=== PATIENT | female | born 1930 | race Caucasian/White ===

== ENCOUNTER 2019-05-21 01:20 | Inpatient (IN) | payer MEDICARE, OTHER ==
[2019-05-21 02:16] LABS: #Basophils 0.1 thou/uL (0.0-0.2); #Eosinphils 0.2 thou/uL (0.0-0.7); #Lymphocytes 2.7 thou/uL (1.20-3.40); #Monocytes 1.4 thou/uL (0.11-0.59); #Neutrophils 9.6 thou/uL (1.40-6.50); %Basophils 0.7 % (0.0-1.0); %Eosinophils 1.6 % (0.0-10.0); %Lymphocytes 19.3 % (21.0-51.0); %Monocytes 9.7 % (0.0-10.0); %Neutrophils 68.6 % (42.0-75.0); Hemoglobin 15.3 g/dL (12.0-16.0); Mean Corpuscular HGB CONC 34.5 g/dL (32.0-36.0); Mean Corpuscular Hemoglobin 35.2 pg (27.0-31.0); Mean Platelet Volume 6.9 fL (7.4-10.4); Platelet Count 280 thou/uL (130-400); RBC Distribution Width 12.5 % (11.5-14.5); Red Blood Cell (RBC) Count 4.34 mill/uL (4.20-5.40)
[2019-05-21 02:37] LABS: ALT (SGPT) 12 U/L (8-55); AST (SGOT) 22 U/L (5-34); Albumin 3.9 g/dL (3.4-4.8); Alkaline Phosphatase 73 U/L (40-110); Anion Gap 9 mmol/L (10-20); BUN (Urea Nitrogen) 13 mg/dL (9.8-20.1); Bilirubin, Total 0.5 mg/dL (0.2-1.2); Calc. Creatinine Clearance 0 mL/min (70-130); Calcium 9.7 mg/dL (7.8-10.44); Carbon Dioxide 30 mmol/L (23-31); Chloride 99 mmol/L (98-107); Estimated GFR-MDRD 84; Globulin 3.4 g/dL (2.4-3.5); Glucose 95 mg/dL (83-110); Potassium 3.6 mmol/L (3.5-5.1); Protein, Total 7.3 g/dL (6.0-8.3); Sodium 134 mmol/L (136-145)
[2019-05-21] MEDS ORDERED: Ondansetron PF 4 MG/2 ML Vial IVP PRN ×2 (02:37→16:44)
[2019-05-21] MEDS ORDERED: Dextrose 50% Abboject 50 ML SYRINGE SLOW IVP PRN (02:37)
[2019-05-21] MEDS ORDERED: Dextrose 5% in Water 1,000 ML IV PRN (02:37)
[2019-05-21] MEDS ORDERED: hydrALAZINE 20 MG/ML VIAL SLOW IVP PRN (02:37)
[2019-05-21] MEDS ORDERED: Sodium Chloride 0.9% 1,000 ML IV SCH (02:45)
[2019-05-21 03:06] LABS: Magnesium 1.7 mg/dL (1.6-2.6); Phosphorus 3.3 mg/dL (2.3-4.7)
[2019-05-21] MEDS: Morphine 2 MG/ML SYRINGE SLOW IVP PRN ×2 (03:42→06:56)
[2019-05-21 03:46] VITALS: BMI 21.9
[2019-05-21] MEDS: Cyclobenzaprine 10 MG TAB PO PRN ×2 (04:46→20:36)
[2019-05-21] MEDS: traMADol HCl 50 MG TAB PO PRN ×2 (04:47→20:36)
[2019-05-21] MEDS: Acetaminophen 500 MG TAB PO SCH ×3 (04:47→17:49)
--- NOTE | 2019-05-21 05:10 | HP ---
TRAUMA SURGEON: Dr. Yoder. CONSULTING PHYSICIAN: Dr. Simmons. HISTORY OF PRESENT ILLNESS: The patient is an 88-year-old female, who presented to the emergency department via EMS after she had a mechanical fall today at home. She denies loss of consciousness or an anticoagulation use. She reports sitting on the seat of her walker and leaning forward to get a meatloaf out of the drawer of her freezer. Subsequently, the drawer fell out and this caused the patient to fall forward and out of her seat, landing on her right hip. Upon evaluation in the emergency department, it was found that she had a right intertrochanteric femur fracture and Dr. Simmons was contacted for evaluation and management. Trauma to evaluate the patient and admit to the hospital. REVIEW OF SYSTEMS: All additional 10-point review of systems is negative except as indicated above. PAST MEDICAL HISTORY: Esophageal cancer, osteoporosis, osteoarthritis, unspecified lung disease that patient reports is not COPD, GERD, hypertension, and hypothyroidism. PAST SURGICAL HISTORY: Esophageal surgery. SOCIAL HISTORY: The patient lives at home alone. She uses a walker to get around. She has children, who help to take care of her when needed. She smoked cigarettes for 30 years, but has not smoked in quite some time. She drinks 1 to 2 glasses of wine at night with dinner and occasionally a mixed drink. She denies any history of drug use. MEDICATIONS: 1. Amlodipine 10 mg daily. 2. Levothyroxine 0.1mg daily. 3. Metoprolol 25 mg once a day. 4. Nexium 40 mg daily. ALLERGIES: NO KNOWN DRUG ALLERGIES. PHYSICAL EXAMINATION: VITAL SIGNS: Temperature 97.7, pulse 79, respirations 18, oxygen saturation 95 % on room air, and blood pressure 121/68. PRIMARY SURVEY: Airway intact. Adequate breath sounds bilaterally. 2+ pulses in the bilateral radials, femorals, and DPs. GCS 15. Gross motor and sensation are intact. No lacerations, bruising, or external bleeding. Her right lower extremity is shortened. SECONDARY SURVEY: HEAD: Normocephalic, atraumatic. No gross palpable skull deformities. EYES: Pupils 3-2, equal, round, and reactive to light bilaterally. ENT: No hemotympanum. No epistaxis. No septal hematoma. Midface stable to manipulation. No blood in the oropharynx. Dentition is intact. No anterior neck injury/crepitus/tenderness. C-SPINE: No step-offs or deformities. Nontender. C-collar not in place. CHEST: Nontender. No crepitus. No abrasions or ecchymosis. Equal chest movement. ABDOMEN: Soft, nontender, nondistended. PELVIS: Stable to palpation. RECTAL: Deferred. GENITOURINARY: Deferred. EXTREMITIES: Right lower extremity is shortened. There is tenderness over the right lateral hip. No abrasions or ecchymosis noted. 2+ pulses in bilateral radials, femorals, and DPs. BACK/SPINE: No step-offs or deformities or tenderness to palpation of the thoracic or lumbar spine. No abrasions or ecchymosis noted. NEUROLOGIC: 5/5 strength in the bilateral keeper head, plantar flexion, and dorsiflexion. Gross normal sensation x4 extremities. LABORATORY FINDINGS: White count 14.0, hemoglobin 15.3, hematocrit 44.3, and platelets 280. Sodium 134, potassium 3.6, chloride 99, bicarb , BUN 13, creatinine 0.66, and glucose 95. DIAGNOSTIC FINDINGS: The patient received a chest x-ray as well as pelvic and right hip x-rays. These demonstrated a right intertrochanteric femur fracture. ASSESSMENT: 1. Status post mechanical fall. 2. Right intertrochanteric femur fracture. 3. History of esophageal cancer, osteoporosis, osteoarthritis, unknown lung disease, gastroesophageal reflux disease, hypertension, and hypothyroidism. PLAN: The patient will be admitted to the Trauma Service and go to [place] [id number] Simmons has been consulted, who plans to take the patient to the OR tomorrow. She will be n.p.o. and receive normal saline at 75 an hour for a total of 1 L. No need for a repeat blood work in the morning. Postoperatively, the patient will work with Physical and Occupational Therapy and likely need placement in acute rehab facility. This patient was discussed with Dr. Yoder before this dictation. Job ID: [id number] [facility]
[2019-05-21] MEDS ORDERED: Calcium Carbonate 500 MG ChewTAB PO PRN (06:11)
[2019-05-21] MEDS: Levothyroxine Sodium 100 MCG TAB PO SCH (06:54)
[2019-05-21] MEDS ORDERED: Magnesium 2 GM/50 ML 2 GM in Premix Bag 1 BAG IVPB SCH (07:30)
--- NOTE | 2019-05-21 07:38 | RAD ---
2 VIEWS RIGHT HIP: Date: 05/21/2019 COMPARISON: None. HISTORY: Right hip pain after fall. FINDINGS: Two views of the right hip show a fracture of the right proximal femur. This is an intertrochanteric fracture approaching the femoral neck. No dislocation of the femoral head is seen. Minimal degenerati ve changes are seen in the right hip. Vascular calcifications are seen. IMPRESSION: Proximal right femur fracture. POS: [facility]
--- NOTE | 2019-05-21 07:39 | RAD ---
SINGLE VIEW PELVIS: Date: 05/21/2019 HISTORY: Fall with right hip pain. FINDINGS: Single view of the pelvis shows a fracture of the proximal aspect of the right femur. Screws are seen in the proximal left femur. Mild degenerative change is seen in both hips. Moderate degenerative dougie nges are seen in the lumbar spine. Vascular calcifications are seen. IMPRESSION: Proximal right femur fracture. POS: C
--- NOTE | 2019-05-21 07:40 | RAD ---
SINGLE VIEW CHEST: Date: 05/21/2019 COMPARISON: None. HISTORY: Preoperative radiograph. Right proximal femur fracture. FINDINGS: Single view of the chest shows an enlarged cardiomediastinal silhouette with atherosclerotic calcific ations in the aorta. Increased interstitial lung markings are present. There may be a small right ple ural effusion. Degenerative changes are seen in the spine and shoulders. IMPRESSION: Possible small right pleural effusion. POS: [facility]
[2019-05-21] MEDS: Polyethylene Glycol 3350 17 GM Packet PO SCH (07:48)
[2019-05-21] MEDS: Amlodipine 10 MG TAB PO SCH (07:48)
--- NOTE | 2019-05-21 08:00 | RAD ---
FRONTAL AND LATERAL IMAGING OF RIGHT HIP: Date: 05/21/2019 HISTORY: Pain, trauma. FINDINGS: There is an incompletely assessed intertrochanteric fracture of the proximal right femur. Bones are d emineralized. No additional fracture is evident. There is vascular calcification at the level of the medial thigh and knee joint posteriorly. Positioning and field of view limits detailed assessment. IMPRESSION: Limited assessment of the right femur demonstrating a proximal femur fracture, better assessed on ded icated 2 view examination of the right hip. POS: [facility]
[2019-05-21] MEDS ORDERED: Senokot S 8.6-50 MG TAB PO SCH (09:00)
[2019-05-21] MEDS ORDERED: Famotidine/PF 20 mg/2ml Vial SLOW IVP SCH (09:00)
[2019-05-21] MEDS ORDERED: Potassium Phosphate 30 MMOL in Sodium Chloride 0.9% 500 ML IVPB SCH (10:00)
[2019-05-21] MEDS ORDERED: Rocuronium Bromide 10 MG/ML (10ML VIAL) ONE (12:01)
[2019-05-21] MEDS ORDERED: Lidocaine 1% PF 5 ML VIAL ONE (12:01)
[2019-05-21] MEDS ORDERED: Ondansetron PF 4 MG/2 ML Vial ONE (12:01)
[2019-05-21] MEDS ORDERED: Dexamethasone 20 MG/5 ML VIAL ONE (12:01)
[2019-05-21] MEDS ORDERED: PROPOFOL 200 MG/20 ML VIAL ONE (12:01)
[2019-05-21] MEDS ORDERED: Succinylcholine Chloride 20 MG/ML 10 ml SYRINGE FS ONE (12:01)
[2019-05-21] MEDS ORDERED: PHENYLEPHRINE-NS 100 MCG/ML 10 ML SYRINGE ONE (12:01)
--- NOTE | 2019-05-21 12:59 | PRG ---
DATE OF SERVICE: 05/21/2019 SUBJECTIVE: This is an 88-year-old female, status post mechanical fall with a right intertrochanteric femur fracture. The patient is currently awake and alert, in no distress, lying in hospital bed. The patient voices no complaints or concerns. The patient's pain is well controlled at this time. The patient has been n.p.o. since midnight. The patient will be going to the OR later today with Dr. Simmons, Orthopedic Surgery, for repair. OBJECTIVE: VITAL SIGNS: Temperature 97.4, pulse 90, respirations 16, SpO2 of 92% on room air, and blood pressure 112/55. GENERAL: Well-appearing elderly female, awake and alert, in no distress. RESPIRATORY: Good inspiratory and expiratory effort, bilateral breath sounds clear. EXTREMITIES: Right lower extremity is externally rotated and shortened. Distal pulses intact. NEUROLOGIC: No focal deficits. Strength 5/5. LABORATORY DATA: There are no new labs to evaluate today. ASSESSMENT: 1. Status post mechanical fall. 2. Right intertrochanteric femur fracture. 3. History of esophageal cancer. 4. Osteoporosis. 5. Osteoarthritis. 6. Unknown lung disease. 7. Esophageal reflux disease. 8. Hypertension. 9. Hypothyroidism. PLAN: Continue supportive care. Continue n.p.o. status and maintenance fluids. The patient will be going to the OR sometime today for repair. We will have Physical and Occupational Therapy work with the patient postoperatively. We will replace electrolytes. We will repeat labs in the morning. The plan was discussed with the patient who agrees. Job ID: [id number]
[2019-05-21] MEDS ORDERED: Fentanyl 100 MCG/2 ML VIAL ONE ×2 (14:36→16:02)
--- NOTE | 2019-05-21 14:59 | CON ---
DATE OF CONSULTATION: 05/21/2019 CHIEF COMPLAINT: Right hip pain. REASON FOR CONSULTATION: Right intertrochanteric femur fracture. HISTORY OF PRESENT ILLNESS: Ms. Alatorre is a pleasant 88-year-old female who presented to emergency department via EMS after a ground-level fall. The patient was reportedly in her house, sitting on the seat of her walker, and she leaned forward to get a drawer out of the freezer and the drawer fell. The patient subsequently fell onto her right hip. She had immediate right hip pain. She was transferred to emergency department via EMS, where x-rays demonstrated right intertrochanteric femur fracture. She was admitted by the trauma service, and Orthopedics was consulted secondary to her fracture. ALLERGIES: NONE. MEDICATIONS: 1. Amlodipine. 2. Levothyroxine. 3. Toprol. PAST MEDICAL HISTORY: 1. Esophageal cancer. 2. Osteoporosis. 3. Osteoarthritis. 4. GERD. 5. Hypertension. 6. Hypothyroidism. PAST SURGICAL HISTORY: 1. Esophageal surgery. 2. ORIF of left femoral neck fracture. SOCIAL HISTORY: The patient currently lives alone. She usually ambulates with a walker. Denies smoking, alcohol, or illicit drug use. REVIEW OF SYSTEMS: Complete 10-system review is negative with the exception of right hip pain. PHYSICAL EXAMINATION: VITAL SIGNS: Stable. The patient is afebrile. GENERAL: Alert and oriented x3, in no acute distress. RESPIRATORY: Nonlabored. CARDIOVASCULAR: Regular rate. ABDOMEN: Soft, nontender, and nondistended. PSYCHIATRIC: Normal mood and affect. MUSCULOSKELETAL: Evaluation of the right lower extremity demonstrates no lacerations, open wounds, or ecchymosis noted. Right lower extremity is shortened and externally rotated. No tenderness to palpation about the right knee, foot, or ankle. Evaluation of the left lower extremity demonstrates no tenderness to palpation or pain on passive range of motion of left hip, knee, ankle, or foot. Evaluation of bilateral upper extremities demonstrates no tenderness to palpation or pain on passive range of motion o bilateral shoulders, elbows, wrists, or hands. NEUROVASCULAR: Sensation intact to light touch, L4 through S1 dermatomes, bilateral lower extremities, and radial, ulnar, and median nerve distribution of bilateral upper extremities. She has 2+ radial pulses. LABORATORY DATA: White blood cell count 14, hemoglobin 15.3, hematocrit 44.3, and platelets are 280. Chemistry: Sodium is 134, potassium 3.6, chloride 99, bicarb 30, BUN 13, creatinine 0.66, and albumin 3.9. IMAGING STUDIES: AP pelvis and AP and lateral x-rays of the right femur demonstrates a displaced right intertrochanteric femur fracture. ASSESSMENT AND PLAN: An 88-year-old female status post ground-level fall with a right displaced intertrochanteric femur fracture. In light of the coronavirus pandemic, we discussed risks, benefits, and alternatives of continued conservative versus surgical intervention. Given displacement of her fracture and instability of the fracture itself and need for mobilization to reduce the incidence of morbidity and mortality, we recommend operative fixation. She has been medically optimized by the trauma service and cleared for surgical intervention today. We will plan for intramedullary nailing of the right intertrochanteric femur fracture today. All questions were answered to the patient. She verbalizes understanding and wants to proceed. Job ID: [id number]
[2019-05-21] MEDS ORDERED: Bupivacaine/Epinephrine 0.25% 30 ML VIAL ONE (15:00)
[2019-05-21] MEDS ORDERED: Promethazine HCl 25 MG/ML VIAL SLOW IVP PRN (15:29)
[2019-05-21] MEDS ORDERED: Bisacodyl 10 MG SUPP PR PRN (16:44)
[2019-05-21] MEDS ORDERED: Milk Of Magnesia 30 ML UDCUP PO PRN (16:44)
[2019-05-21] MEDS ORDERED: Fleet Enema 133 ML BOT PR PRN (16:44)
[2019-05-21] MEDS ORDERED: Cepastat Lozenges 1 LOZ PO PRN (16:44)
[2019-05-21] MEDS ORDERED: Ondansetron ODT 4 MG TAB PO PRN (16:44)
--- NOTE | 2019-05-21 16:44 | RAD ---
INTRAOPERATIVE IMAGING OF THE RIGHT HIP: Date: 05-21-2019 History: ORIF FINDINGS: Proximal right femur fracture is treated with intramedullary clay with femoral neck nail and distal in terlocking screw. IMPRESSION: ORIF as above. POS: [facility]
--- NOTE | 2019-05-21 17:54 | RAD ---
RIGHT HIP: Indications: Post op evaluation. FINDINGS: Post op changes noted with lateral skin brian. The intertrochanteric fracture has been fixed with i ntermedullary clay and pin. Fragments appeared in adequate position and alignment. POS: [facility]
[2019-05-21] MEDS: Ferrous Gluconate 324 MG TAB PO SCH (20:36)
[2019-05-21] MEDS: Senokot S 8.6-50 MG TAB PO SCH (20:36)
[2019-05-21] MEDS: CEFAZOLIN 2 GM in Premix Bag 1 BAG IVPB SCH (21:16)
--- NOTE | 2019-05-21 22:09 | PRG ---
DATE OF SERVICE: SUBJECTIVE: The patient was seen this evening during rounds. She is postoperative day 0 after fixation of her right intertrochanteric femur fracture by Orthopedic Surgery. Upon my evaluation, the patient was resting comfortably and asleep with no signs of acute distress. Nursing reported no acute events. OBJECTIVE: VITAL SIGNS: Temperature 97.3, pulse 60, respirations 16, oxygen saturation 93% on room air, and blood pressure 132/69. GENERAL: Well-appearing elderly female, lying in bed, asleep with no signs of acute distress. PULMONARY: Equal chest rise and fall. Clear breath sounds bilaterally. No signs of acute respiratory distress. ASSESSMENT: 1. Status post mechanical fall. 2. Right intertrochanteric femur fracture, status post repair. 3. History of esophageal cancer, osteoporosis, osteoarthritis, lung disease, gastroesophageal reflux disease, hypertension, and hypothyroidism. PLAN: Continue current regular diet. Discontinue IV fluids. Continue Castillo until tomorrow. Continue home medications as previously prescribed. The patient to start on Lovenox tomorrow. She will work with Physical and Occupational Therapy and likely need placement in acute rehab facility. Job ID: [id number]
[2019-05-22] MEDS: Acetaminophen 500 MG TAB PO SCH ×4 (00:36→17:19)
[2019-05-22] MEDS: Levothyroxine Sodium 100 MCG TAB PO SCH (05:24)
[2019-05-22] MEDS: CEFAZOLIN 2 GM in Premix Bag 1 BAG IVPB SCH (05:25)
[2019-05-22] MEDS: traMADol HCl 50 MG TAB PO PRN ×2 (05:25→14:42)
[2019-05-22 05:31] LABS: Band 3 % (5-11); Hemoglobin 11.9 g/dL (12.0-16.0); Lymphocytes 18 % (21-51); MDiff Complete? YES; Mean Corpuscular HGB CONC 34.9 g/dL (32.0-36.0); Mean Corpuscular Hemoglobin 36.1 pg (27.0-31.0); Mean Platelet Volume 7.1 fL (7.4-10.4); Monocytes 10 % (0-10); Neutrophil 69 % (42-75); Platelet Count 214 thou/uL (130-400); RBC Distribution Width 12.7 % (11.5-14.5); Red Blood Cell (RBC) Count 3.31 mill/uL (4.20-5.40)
--- NOTE | 2019-05-22 05:53 | HP ---
ADDENDUM: This is an addendum to the H and P dictated by Isa Sanchez Trauma KARI. For full details, please see her H and P, the details of which I have confirmed with the patient. In short, the patient is an 88-year-old woman who fell at home. She was trying to get a meat loaf out of her freezer and when the drawer fell out, she also fell forward and landed on her right hip. She denies any loss of consciousness or other injuries. She does have a history of esophageal cancer, status post distal esophagectomy and gastric pull-through and radiation therapy. She has some chronic pulmonary problems following radiation, sounds like it was caused by the radiation. She also has osteoporosis, osteoarthritis, but denies any history of heart disease. Hypothyroidism. PAST SURGICAL HISTORY: Esophageal resection. ORIF of the left femur. SOCIAL HISTORY: She is a former smoker. She drinks wine with dinner. She does not use any illicit drugs and lives independently at home, using a walker. She does live by herself. OUTPATIENT MEDICATIONS: Include; 1. Amlodipine. 2. Synthroid. 3. Metoprolol. 4. Nexium. Does not take any blood thinners. ALLERGIES: SHE HAS NO KNOWN DRUG ALLERGIES. PHYSICAL EXAMINATION: Complete physical examination was performed. VITAL SIGNS: Unremarkable. HEAD, NECK, CHEST, ABDOMEN, PELVIS: She was normocephalic, atraumatic with no tenderness over the neck, chest, abdomen, or pelvis. EXTREMITIES: She does have some external rotation of her right leg. She has normal distal pulses and sensation and normal ankle and foot and toe movement. NEUROLOGIC: She is alert, oriented, and appropriate. LABORATORY DATA: White count was mildly elevated, but the hematocrit and platelets are normal. Electrolytes are unremarkable, except for some mild decrease in her sodium to 134. ASSESSMENT: Right proximal femur fracture, status post ground level fall. She was seen on the morning rounds and has been taken to the operating room by Orthopedics for open reduction internal fixation. Postoperatively, Physical Therapy will be consulted to help with mobilization. Discharge plan will depend on her mobility and help available at home. Job ID: [id number]
[2019-05-22 06:43] LABS: Anion Gap 10 mmol/L (10-20); BUN (Urea Nitrogen) 11 mg/dL (9.8-20.1); Calc. Creatinine Clearance 57 mL/min (70-130); Calcium 8.2 mg/dL (7.8-10.44); Carbon Dioxide 24 mmol/L (23-31); Chloride 101 mmol/L (98-107); Estimated GFR-MDRD Greater than 90; Glucose 120 mg/dL (83-110); Magnesium 1.9 mg/dL (1.6-2.6); Phosphorus 2.9 mg/dL (2.3-4.7); Potassium 4.9 mmol/L (3.5-5.1); Sodium 130 mmol/L (136-145)
--- NOTE | 2019-05-22 07:54 | OP ---
DATE OF PROCEDURE: 05/21/2019 PREOPERATIVE DIAGNOSIS: Right displaced intertrochanteric femur fracture. POSTOPERATIVE DIAGNOSIS: Right displaced intertrochanteric femur fracture. PROCEDURE PERFORMED: Cephalomedullary nailing of a right displaced intertrochanteric femur fracture. ANESTHESIA: General. FINDINGS: Displaced right intertrochanteric fracture. ESTIMATED BLOOD LOSS: 100 mL. DRAINS: None. TOURNIQUET: None. COMPLICATION: None. IMPLANTS: Synthes TFNA short cephalomedullary nail with 100 mm proximal blade screw and distal interlocking screw. INDICATIONS FOR PROCEDURE: Ms. Alatorre is an 88-year-old female who was transferred to the emergency department via EMS after a ground level fall at home. In the emergency department, it was found she had a right displaced intertrochanteric femur fracture. The patient was seen and evaluated. Given the displacement of her fracture and instability of her right lower extremity, it was recommended she undergo operative fixation. We discussed risks, benefits, alternatives of conservative versus surgical intervention in light of the coronavirus pandemic. Given the instability of the right lower extremity and the need to mobilize the patient to reduce morbidity, mortality and reduce the incidence of short and long-term functional compromise, I recommended she undergo operative fixation. She verbalized understanding and wanted to proceed. She was seen in the preoperative area. Risks, benefits, alternatives of procedure were again reviewed. She verbalized understanding and wanted to proceed. Right hip was marked as correct operative site. PROCEDURE IN DETAIL: The patient was brought back to the operative suite, transferred over the surgical table in supine position. She underwent general anesthetic. Once general anesthetic had taken effect, she was transferred to the fracture table. All bony prominences were well padded. We performed gentle reduction of the right hip, C-arm was brought in. We had good reduction of our fracture. We prepped and draped the right lower extremity. A formal time-out was conducted indicating correct procedure, correct site, correct patient. All were in agreement. She received 2 g of Ancef prior to start of procedure. I made a 5 cm longitudinal incision proximal to the greater trochanter, dissected down to the greater trochanter itself. _We introduced our terminally threaded guide pin introduced in the proximal femur in the central aspect on AP and lateral planes. We then opened with our opening reamer. At that point, we obtained a Synthes TFNA. A short cephalomedullary nail introduced in the proximal femur. I made 2 stab incisions over the lateral aspect of the proximal femur down to bone, placed our trocar and our guide pin for our cephalomedullary screw. Using AP and lateral planes, we introduced the guide pin along the central aspect of the femoral neck. We then placed our Synthes blade proximally. Under C-arm guidance we then placed a distal interlock screw. C- arm was again brought in, verified we had adequate reduction of our fracture. Implants were in appropriate position. At that point, the guide was removed. We copiously irrigated the site with normal saline. Closed the deep layer with 0 Vicryl, approximated subcu layer with 2-0 Vicryl, approximated skin with brian. At that point 30 mL of 0.25% Marcaine with epinephrine was used for postop pain control around all incisional sites. At that point Xeroform was placed over the incision site followed by 4x4, Sof-Rol and Medipore tape. She was then awaken from the general anesthetic, transferred to the hospital bed and transferred to PACU in stable condition. No complications during the procedure. ASSESSMENT AND PLAN: An 88-year-old female status post cephalomedullary nailing of a right intertrochanteric femur fracture. She is weightbearing as tolerated to the right lower extremity. She will be admitted back to the floor for postop pain control and IV antibiotics. We will see the patient in clinic in 2 weeks time. She will likely need inpatient rehab placement secondary to her living alone and limited mobility status. She verbalized understanding of this prior to the procedure as well. We will see her in clinic in 2 weeks. Job ID: [id number] [facility]
--- NOTE | 2019-05-22 08:48 | PRG ---
DATE OF SERVICE: 05/22/2019 SUBJECTIVE: The patient seen and evaluated in her hospital bed. Pain is controlled. No adverse events overnight. Vital signs stable. The patient is afebrile. OBJECTIVE: Evaluation of right lower extremity demonstrates dressing was clean, dry, and intact. She has positive FHL/EHL/peroneal muscle activation. No excessive swelling in the calf, thigh, or foot. Neurovascular sensation intact to light touch L4 through S1 dermatomes. Cap refill less than 2 seconds in all digits. She has 2+ DP and PT pulses. LABORATORY DATA: White count is 10, hemoglobin 11.9, hematocrit 34, and platelets 214. Chemistry; sodium 130, potassium 4.9, chloride 101, bicarb 24, BUN 11, creatinine 0.58, and vitamin D is 41. ASSESSMENT AND PLAN: An 88-year-old female status post cephalomedullary nailing of a right intertrochanteric femur fracture. She is weightbearing as tolerated in right lower extremity. PT to evaluate and treat. Weightbearing as tolerated. Deep venous thrombosis prophylaxis, Lovenox. Ancef, complete today. Disposition: From Orthopedic's perspective, she can be discharged once medically optimized. She will likely need inpatient rehab as the patient does live alone. We will see the patient back in clinic in two weeks time. Orthopedics will follow peripherally. Job ID: [id number]
[2019-05-22] MEDS: Polyethylene Glycol 3350 17 GM Packet PO SCH (09:10)
[2019-05-22] MEDS: Enoxaparin Sodium 40 MG/0.4 ML SYRINGE SC SCH (09:10)
[2019-05-22] MEDS: Multivitamin W/ Minerals 1 TAB PO SCH (09:10)
[2019-05-22] MEDS: Ferrous Gluconate 324 MG TAB PO SCH ×2 (09:10→20:00)
[2019-05-22] MEDS: Senokot S 8.6-50 MG TAB PO SCH ×2 (09:12→20:00)
[2019-05-22] MEDS ORDERED: Hydrocortisone Sod Succ/PF 250 mg/2 ml Vial SLOW IVP SCH (09:30)
[2019-05-22] MEDS: Amlodipine 10 MG TAB PO SCH (09:33)
[2019-05-22] MEDS ORDERED: Sodium Chloride 0.9% 500 ML IV SCH ×2 (09:45→19:30)
[2019-05-22] MEDS ORDERED: Hydrocortisone Sod Succ/PF 100 mg/2 ml Vial IVP SCH ×2 (10:00→12:00)
--- NOTE | 2019-05-22 11:20 | PRG ---
DATE OF SERVICE: 05/22/2019 SUBJECTIVE: Ms. Alatorre is an 88-year-old woman, who is postoperative day #1 status post IM nailing of right displaced intertrochanteric femur fracture. She is awake and alert this morning, reports adequate pain control. She is complaining of dizziness, which is worse when she was stood up by Physical Therapy at bedside. Blood pressure also has been relatively low this morning. Urinary output nevertheless is adequate for the patient's age and weight. OBJECTIVE: VITAL SIGNS: This morning include blood pressure 100/59, pulse is 93, respiratory rate is 16, temperature is 97.8 degrees Fahrenheit, and oxygen saturation is 92% on room air. HEENT: Pupils equal, round, reactive to light and accommodation. NECK: She has no jugular venous distention noted. HEART: Regular rate and rhythm. LUNGS: Clear to auscultation bilaterally. Breathing regular and nonlabored. ABDOMEN: Soft, nontender, and nondistended. NEUROLOGIC: No focal deficits present. LABORATORY FINDINGS: This morning includes a CBC with 10,000 white blood cells, hemoglobin and hematocrit of 11.9 and 34.3 respectively. Platelet count is 214,000. Metabolic profile; sodium 130, potassium 4.9, chloride 101, bicarb 24, BUN 11, creatinine 0.58, glucose 120, magnesium 1.9, and phosphorus 2.9. Serum cortisol level 12.20. IMPRESSION: 1. Postop day #1 status post intramedullary nailing, right intertrochanteric femur fracture. 2. Acute adrenal insufficiency. 3. Acute hyponatremia. 4. Acute hypophosphatemia. 5. Acute hypomagnesemia. PLAN: 1. The patient is given a bolus of normal saline 500 mL intravenously and we will also initiate a steroid therapy to treat the acute adrenal insufficiency. 2. Increase activity per Physical and Occupational therapy. 3. Anticipate discharge to inpatient rehabilitation once hemodynamically stable. Job ID: [id number]
[2019-05-22] MEDS: Hydrocortisone Sod Succ/PF 100 mg/2 ml Vial IVP SCH ×2 (17:10→22:40)
--- NOTE | 2019-05-22 21:51 | PRG ---
DATE OF SERVICE: 05/22/2019 SUBJECTIVE: The patient was seen this evening during rounds. She was lying in bed. She was awake and alert with no signs of acute distress. Nursing reported blood pressure has been improving today after hypotensive episode with systolic blood pressures in the 80s while working with physical therapy. The patient received 500 mL bolus of normal saline as well as hydrocortisone for acute adrenal insufficiency. Since that time, she has had continued moderately low urinary output. OBJECTIVE: VITAL SIGNS: Temperature 97.6, pulse 96, respirations 18, oxygen saturation 93% on room air, and blood pressure 97/52. GENERAL: Well-appearing elderly female, lying in bed with no signs of acute distress. PULMONARY: Equal chest rise and fall. No signs of acute respiratory distress. ASSESSMENT: 1. Status post mechanical fall from standing. 2. Right intertrochanteric femur fracture, status post repair. 3. Acute postop hypotension due to acute adrenal insufficiency as well as dehydration. 4. History of esophageal cancer, osteoporosis, osteoarthritis, lung disease of unknown type, gastroesophageal reflux disease, hypertension, and hypothyroidism. PLAN: Continue current diet and pain regimen. Continue physical and occupational therapy. Continue 1 L free water restriction for hyponatremia. The patient to receive an additional 500 mL bolus of normal saline this evening over 5 hours, and we will continue to monitor the urinary output. Keep Castillo in place. Continue hydrocortisone. The patient is pending placement at an acute rehab facility. Job ID: [id number]
[2019-05-23] MEDS: Acetaminophen 500 MG TAB PO SCH ×3 (00:09→12:26)
[2019-05-23] MEDS: Hydrocortisone Sod Succ/PF 100 mg/2 ml Vial IVP SCH ×3 (03:19→16:06)
[2019-05-23 05:50] LABS: #Lymphocytes 1.2 thou/uL (1.20-3.40); #Monocytes 0.8 thou/uL (0.11-0.59); #Neutrophils 10.9 thou/uL (1.40-6.50); %Basophils 0.1 % (0.0-1.0); %Eosinophils 0.1 % (0.0-10.0); %Monocytes 6.2 % (0.0-10.0); %Neutrophils 84.6 % (42.0-75.0); Hemoglobin 10.5 g/dL (12.0-16.0); Mean Corpuscular Hemoglobin 34.2 pg (27.0-31.0); Mean Platelet Volume 7.8 fL (7.4-10.4); Platelet Count 204 thou/uL (130-400); RBC Distribution Width 12.3 % (11.5-14.5); Red Blood Cell (RBC) Count 3.08 mill/uL (4.20-5.40); White Blood Cell (WBC) Count 12.9 thou/uL (4.8-10.8)
[2019-05-23 06:16] LABS: Anion Gap 7 mmol/L (10-20); BUN (Urea Nitrogen) 13 mg/dL (9.8-20.1); Calc. Creatinine Clearance 59 mL/min (70-130); Calcium 8.1 mg/dL (7.8-10.44); Carbon Dioxide 25 mmol/L (23-31); Chloride 99 mmol/L (98-107); Estimated GFR-MDRD Greater than 90; Glucose 144 mg/dL (83-110); Magnesium 1.8 mg/dL (1.6-2.6); Phosphorus 1.6 mg/dL (2.3-4.7); Potassium 4.4 mmol/L (3.5-5.1); Sodium 127 mmol/L (136-145)
--- NOTE | 2019-05-23 08:45 | PRG ---
DATE OF SERVICE: 05/23/2019 SUBJECTIVE: Patient doing well. Pain is well controlled. No adverse events overnight. OBJECTIVE: VITAL SIGNS: Stable, patient is afebrile. EXTREMITIES: Evaluation of right lower extremity demonstrates dressing is clean, dry, intact. Positive FHL/EHL/peroneal muscle activation. No excessive swelling of the thigh, calf, or foot. No pain on passive stretch of the digits. She is neurovascularly intact throughout. LABORATORY DATA: White count 12.9, hemoglobin 10.5, hematocrit 31.9, platelets 204. Chemistry: Sodium 127, potassium 4.4, chloride 99, bicarb 25, BUN 7, creatinine 0.56, phosphorus is 1.6. Vitamin D is 41. ASSESSMENT AND PLAN: An 88-year-old female status post cephalomedullary nailing of right intertrochanteric femur fracture. Postop day 2, patient is doing well. The patient is weightbearing as tolerated to right lower extremity. DVT prophylaxis, SCDs and Lovenox. Ancef complete. Physical Therapy to evaluate and treat. Weightbearing as tolerated to right lower extremity. DISPOSITION: From Orthopedic's perspective, the patient to be discharged once medically optimized. She will likely need inpatient rehab status. We will see the patient back in clinic in approximately 2 weeks' time. We will call the patient for that appointment and have that arranged. All prescriptions in the chart. Job ID: [id number]
[2019-05-23] MEDS: Amlodipine 10 MG TAB PO SCH (08:50)
[2019-05-23] MEDS: Multivitamin W/ Minerals 1 TAB PO SCH (08:58)
[2019-05-23] MEDS: Levothyroxine Sodium 100 MCG TAB PO SCH (08:58)
[2019-05-23] MEDS: Polyethylene Glycol 3350 17 GM Packet PO SCH (08:58)
[2019-05-23] MEDS: Enoxaparin Sodium 40 MG/0.4 ML SYRINGE SC SCH (08:58)
[2019-05-23] MEDS: Ferrous Gluconate 324 MG TAB PO SCH (08:59)
[2019-05-23] MEDS: Senokot S 8.6-50 MG TAB PO SCH (08:59)
[2019-05-23] MEDS ORDERED: Sodium Chloride 1 GM TAB PO SCH (09:00)
[2019-05-23 15:19] VITALS: BP 117/53; TEMP 98
--- NOTE | 2019-05-23 15:40 | RAD ---
RIGHT HIP 2 VIEWS: Date: 05/23/2019 HISTORY: Increased right hip pain after physical therapy. COMPARISON: 05/21/2019. FINDINGS/IMPRESSION: Postop changes with metallic hardware in the right proximal femur shows no significant interval fajardo e since the exam of 05/21/2019. Soft tissue air is again seen. No new fracture or dislocation is iden tified. Metallic hardware is intact. POS: MAHESH
[2019-05-23] MEDS: traMADol HCl 50 MG TAB PO PRN (16:04)
--- NOTE | 2019-05-24 02:38 | DIS ---
DATE OF ADMISSION: 05/21/2019 DATE OF DISCHARGE: 05/23/2019 ADMISSION DIAGNOSES: 1. Status post ground level fall. 2. Right intertrochanteric hip fracture. 3. History of esophageal cancer, osteoporosis, osteoarthritis, "lung disease," gastroesophageal reflux disease, hypertension and hypothyroidism. CONSULTATIONS: Orthopedics, Dr. Simmons. PROCEDURE: Cephalomedullary nailing of right displaced intertrochanteric femur fracture. SUMMARY: The patient is an 88-year-old woman, who was brought to the emergency department by ground EMS after having a ground level fall at home. She underwent evaluation and examination and was noted to have the above injury. She would be able to be taken to the operating room and undergo her above procedure, which she tolerated well. She began working with Physical and Occupational Therapy and at the time of discharge, she continued working with Physical and Occupational Therapy. She was tolerating a diet. Her pain was controlled. The patient was transferred to inpatient rehab to continue her care. She will follow up with Dr. Simmons in 2 weeks, sooner as needed. Job ID: [id number]
[2019-05-24] MEDS ORDERED: Levothyroxine Sodium 100 MCG TAB PO SCH (06:00)
== END 2019-05-23 17:44 | DRG 481 ==
LOC: ERS 01:20 → SURG B 02:12
PROVIDERS: ADMIT Surgery; ATTEND Surgery
PROC: 0QS604Z Reposition Right Upper Femur with Internal Fixation Device, Open Approach (ICD-10-PCS; principal; 2019-05-21)
DX: S72.141A Displaced intertrochanteric fracture of right femur, initial encounter for closed fracture (principal); E27.40 Unspecified adrenocortical insufficiency; E87.1 Hypo-osmolality and hyponatremia; M81.0 Age-related osteoporosis without current pathological fracture; E83.39 Other disorders of phosphorus metabolism; E83.42 Hypomagnesemia; M19.90 Unspecified osteoarthritis, unspecified site; K21.9 Gastro-esophageal reflux disease without esophagitis; I10 Essential (primary) hypertension; I95.89 Other hypotension; E03.9 Hypothyroidism, unspecified; W17.89XA Other fall from one level to another, initial encounter; Z85.01 Personal history of malignant neoplasm of esophagus; Z87.891 Personal history of nicotine dependence; Y92.099 Unspecified place in other non-institutional residence as the place of occurrence of the external cause
CPT/HCPCS: 36415; 71045; 72170; 76000; 80048; 80053; 82306; 82533; 83735; 84100; 85007; 85025; 85027; 93005; C1713; G0390; J0690; J1100; J1650; J1720; J2001; J2270; J2405; J2704; J3010; J3475; J7030; J7050